=== PATIENT | male | born 1950 | race Caucasian/White ===

== ENCOUNTER 2016-09-12 10:49 | Inpatient (IN) | payer MEDICARE, OTHER ==
[~2016-09-12] VITALS: Ht 177.8 cm; Wt 85.6 kg
[2016-09-12] VITALS (7 sets, daily range): BP systolic 130–174; BP diastolic 78–84; PULSE 92–139; RESP 16–23; O2SAT 94–99
--- NOTE | 2016-09-12 11:00 | ED.REPORT ---
HPI-Abd Pain M 40 and Over Date of Service Sep 12, 2016 ED Provider: Milad King DO 66 year old male presents to the ER accompanied by his complaining of three days of RLQ abdominal pain. Pain is exacerbated by movement, and any positional changes. Associated symptoms include subjective fever, chills, diaphoresis, nausea, and anorexia. Patient denies vomiting, constipation, diarrhea, and hematochezia. He drinks alcohol daily. Nursing Notes Stated Complaint: ABDOMINAL PAIN/FEVER Chief Complaint: Male Abdominal Pain Nursing Notes Reviewed: Yes Allergies: Coded Allergies: No Known Allergies (Unverified , 09/12/16) Scheduled Fluticasone Propionate (Flonase Allergy Relief) 50 Mcg/Actuation Flasher.susp 1 SPRAY NS DAILY Levothyroxine (Levothyroxine) 25 Mcg Tablet 25 MCG PO DAILY Lisinopril (Lisinopril) 20 Mg Tablet 20 MG PO DAILY Tamsulosin (Flomax) 0.4 Mg Capsule 0.4 MG PO BID General Time Seen by MD: 10:59 Chief Complaint Abdominal pain (RLQ), Other (Fever) Hx Obtained From: Patient Arrived By: Walk-in Sudden in Onset?: No Onset Occurred: 3 days ago Symptom Duration: Since onset Location: : Diffuse Quality: Painful Severity: Current: Moderate Severity: Maximum: Moderate Associated with: Denies: Constipation, Diarrhea, Hematemesis, Hematochezia, Melena, Nausea, Vomiting Exacerbated by: Certain positions, Movement, Sitting up, Walking Pertinent Negative: Relieved by nothing Past Medical History Past Medical History Kidney stones Reports: Hypertension Reports: Thyroid disease (Hypothyroid) Smoking History Former Smoker Social History Alcohol Use: 1-3 per day Other Social History: Good social support, Ambulatory Status Independent Review of Systems Constitutional: Reports: Chills, Fever (Subjective) Respiratory: Denies: Non-productive cough, Shortness of breath GI: Reports: Abdominal pain, Nausea, Denies: Bloody/tarry stool, Constipation, Diarrhea, Hematemesis, Hematochezia , Vomiting Male: Denies Dysuria, Denies Flank pain, Denies Hematuria Complete sys rev & neg: except as marked. Skin: Reports Diaphoresis Physical Exam Initial Vital Signs Vital Signs (First) Date Time Temp Pulse Resp B/P Pulse Ox O2 Delivery O2 Flow Rate FiO2 09/12/16 10:54 37.2 139 18 132/83 99 09/12/16 12:20 Room Air Initial VS: Reviewed Head / Eyes: Atraumatic, Normocephalic, PERRL ENT: Mucous membranes moist, Conjunctiva normal, No scleral icterus Neck: Supple, Non-tender, Full range of motion Extremities: Vascular intact, Neuro intact, No swelling, No tenderness Skin: Warm, Dry, No cyanosis Neurologic: Alert, Oriented, Nonfocal Psychiatric: Mood/affect normal, Behavior normal, Normal thought content General/Constitutional: Awake, Alert, Well developed, Well nourished Respiratory / Chest: Breath sounds NL, Breath sounds = bilat, No respiratory distress, No rales, No rhonchi, No wheezing Cardiovascular: Heart rate NL, Regular rhythm, Heart sounds NL, Peripheral circulation NL Abdomen: Soft, No rebound, No distention Tenderness/Guarding/Rebound: Positive: Guarding involuntary, Guarding voluntary , McBurney's point tender, Tender RLQ... (Moderate) Back: Inspection NL, Non-tender, No CVA tenderness Interpretation & Diagnostics Lab Results Interpretation Result Diagram: 09/12/16 1130 09/12/16 1130 Test 09/12/16 11:30 09/12/16 12:50 White Blood Count 15.2th/mm3 (3.8-10.1) Red Blood Count 4.65mil/mm3 (4.40-5.80) Hemoglobin 14.3g/dL (13.8-17.2) Hematocrit 43.1% (41.0-50.0) Mean Corpuscular Volume 92.7fL (81-100) Mean Corpuscular Hemoglobin 30.8pg (27.0-35.0) Mean Corpuscular Hemoglobin Concent 33.2% (32.0-37.0) Red Cell Distribution Width 13.6% (12.3-15.4) Platelet Count 185bil/L (150-400) Neutrophils (%) (Auto) 84.8% (40-74) Lymphocytes (%) (Auto) 4.3% (14-46) Monocytes (%) (Auto) 9.9% (4-12) Eosinophils (%) (Auto) 0.7% (0-5) Basophils (%) (Auto) 0.1% (0-3) Sodium Level 135mEq/L (134-144) Potassium Level 4.5mEq/L (3.5-5.2) Chloride Level 97mEq/L (97-108) Carbon Dioxide Level 20mmol/L (18-29) Blood Urea Nitrogen 14mg/dL (8-27) Creatinine 1.20mg/dL (0.76-1.27) Estimat Glomerular Filtration Rate 65mL/min (>59) Glucose Level 182mg/dL (60-99) Lactic Acid Level 1.4mmol/L (0.4-2.0) Calcium Level 8.9mg/dL (8.5-10.1) Magnesium Level 1.8mg/dL (1.6-2.6) Total Bilirubin 0.7mg/dL (0.0-1.2) Aspartate Amino Transf (AST/SGOT) 16U/L (0-50) Alanine Aminotransferase (ALT/SGPT) 13U/L (0-44) Alkaline Phosphatase 98U/L (25-160) Total Protein 7.6g/dL (6.4-8.4) Albumin 3.7g/dL (3.4-5.0) Lipase 20U/L (13-60) Hold Urine Received (Received) ECG Interpretation ECG Interpretation: Sinus tachycardia, rate 100 Time: 12:56 Interpreted by: ED physician CT Abd / Pelvis Interpretation IMPRESSION: 1. Extensive pneumoperitoneum, source of perforation not identified but considering volume of air, large disc is perforation such as stomach or colon is likely. 2. Colonic diverticulosis, perforated diverticulum is possible. 3. Right nephrolithiasis. Report called to Dr.O' Jo in the ED at 1304 hrs. on 09/12/2016 Dictated by: Vick Howard M.D. on 09/12/2016 at 12:52 Approved by: Vick Howard M.D. on 09/12/2016 at 13:04 Study type: Abdominal CT IV contrast Interpretation / Wet Read by: Interpret - Radiologist Re-Eval/Medical Decision Med Decision/Clinical Course Perforated viscus without overt peritonitis, surgeon is called and sees the patient in the emergency department, approximately 30 mL/kg bolus of normal saline, patient met initial sepsis parameters, will be given IV Zosyn. Will be admitted. Source of Hx: Old records Time of Eval: 13:15 Re-Evaluation/Progress Note: Discussed CT results and plan to admit. Patient is amenable to the plan. Time of Eval: 13:50 Re-Evaluation/Progress Note: Dr. Langley, Surgeon, is now present at bedside. Consultation #1: Referral / Consult Name: Juan Langley MD Consulted With: Surgeon Call Returned at: 13:07 Insole Tacker: Will see patient Consultation #2: Referral / Consult Name: Juan Langley MD Consulted With: Surgeon Call Returned at: 14:00 Insole Tacker: Accepts admit Note: Requests admission to CCU on antibiotics. Will re-evaluate later today. Counseled Regarding: Diagnosis, Lab results, Need for admission Discharge & Departure Primary Impression: Perforated viscus Disposition: ADMITTED TO HOSPITAL Vital Signs - All Vital Signs Date Time Temp Pulse Resp B/P Pulse Ox O2 Delivery O2 Flow Rate FiO2 09/12/16 12:20 38.1 104 21 142/81 96 Room Air 09/12/16 10:54 37.2 139 18 132/83 99 )( All Prior VS Reviewed: Yes Condition: Stable Referrals: Wes Kingston (PCP) Crit Care Except Billable Proc Time Spent: 30-74 minutes Services Performed: Patient management by me, Time spent at bedside, Reviewing test results Critical Care Notes: See MDM Scribe Attestation Portions of this note were transcribed by Vishal Armendariz. I, Dr. King, personally performed the history, physical exam and medical decision-making; I reviewed and confirmed the accuracy of the information in the transcribed note. Signed by: Monica Serna, 09/12/2016 and 15:06 copies to: Wes Kingston Timothy S DO Sep 12, 2016 11:00 VISHAL ARMENDARIZ Sep 12, 2016 11:06
[2016-09-12] MEDS ORDERED: 0.9% Sodium Chloride 1,000 ML IV ONE ×2 (11:12→12:25)
[2016-09-12] MEDS ORDERED: Ondansetron 2 mg/mL 2 mL Inj IVPUSH PRN ×2 (11:15→14:35)
[2016-09-12] MEDS ORDERED: HYDROmorphone 0.5 mg/0.5 mL iSecure Syringe IVPUSH PRN (11:15)
[2016-09-12 11:43] LABS: BASOPHILS % (AUTO) 0.1 % (0-3); EOSINOPHILS % (AUTO) 0.7 % (0-5); MONOCYTES % (AUTO) 9.9 % (4-12); Mean Corpuscular Hemoglobin 30.8 pg (27.0-35.0); Mean Corpuscular Volume 92.7 fL (81-100); NEUTROPHILS % (AUTO) 84.8 % (40-74); Platelet Count 185 bil/L (150-400)
[2016-09-12 11:59] LABS: Magnesium 1.8 mg/dL (1.6-2.6)
[2016-09-12] MEDS ORDERED: 0.9% Sodium Chloride 500 ML IV ONE (12:45)
[2016-09-12] MEDS ORDERED: Piperacillin-Tazo 3.375 Gm Inj 3.375 GM in Dextrose 5% Minibag Plus 50 ML IV ONE (12:45)
--- NOTE | 2016-09-12 13:06 | DRSVH ---
PROCEDURE: CT ABDOMEN AND PELVIS WITH CONTRAST (PNL-7102) INDICATIONS: abd pain TECHNIQUE: After the administration of intravenous contrast, 5 mm thick sections acquired from the diaphragm to the symphysis. 5 mm coronal and sagittal reformats were acquired. For radiation dose reduction, the following was used: automated exposure control, adjustment of mA and/or kV according to patient siz e. COMPARISON: None. FINDINGS: Image quality: Excellent. ABDOMEN: Lung bases: Lung bases are clear. Heart size is normal. Solid organs: Liver and spleen are normal in size and enhancement. Gallbladder appears clear. Bili seema system is non dilated. Pancreas enhances normally. No adrenal nodules. Kidneys demonstrate nor mal size and enhancement, without hydronephrosis. Small renal cortical hypodensities, likely cysts bi laterally. Nonobstructing calculi mid and lower pole of the right kidney Peritoneum and bowel: Small bowel loops demonstrate normal wall thickness and caliber. The colon show s redundancy of the sigmoid segment with multiple scattered diverticula. There is mesenteric fat stra nding but no focal bowel wall thickening differential diagnosis as diverticulitis There is a large am ount of free intraperitoneal air. Free air even extends into the left inguinal hernia. No free fluid. Nodes and vessels: No retroperitoneal or mesenteric adenopathy by size criteria. Aorta and inferior vena cava are normal in size. Miscellaneous: No ventral hernias. PELVIS: Genitourinary: Bladder wall thickness is normal. Miscellaneous: No inguinal hernias or adenopathy. Bones: No suspicious bony lesions. No vertebral body compression fractures. IMPRESSION: 1. Extensive pneumoperitoneum, source of perforation not identified but considering volume of air, la rge disc is perforation such as stomach or colon is likely. 2. Colonic diverticulosis, perforated diverticulum is possible. 3. Right nephrolithiasis. Report called to Dr.O' Jo in the ED at 1304 hrs. on 09/12/2016 Dictated by: Vick Howard M.D. on 09/12/2016 at 12:52 Approved by: Vick Howard M.D. on 09/12/2016 at 13:04
[2016-09-12] MEDS: 0.9% Sodium Chloride 1,000 ML IV SCH ×3 (13:23→20:25)
[2016-09-12] MEDS ORDERED: LISI-567 PO (13:51)
[2016-09-12] MEDS ORDERED: TAMS0.4C98 PO (13:51)
[2016-09-12] MEDS ORDERED: LEVO25TA5 PO (13:51)
[2016-09-12] MEDS ORDERED: FLUT9.9S NS (13:51)
[2016-09-12] MEDS ORDERED: Acetaminophen IV 1,000 MG in IV Premix 1 EACH IV ONE (14:00)
[2016-09-12] MEDS: Lactated Ringer's 1,000 ML IV SCH (16:15)
[2016-09-12 16:30] LABS: APPEARANCE,URINE CLEAR (CLEAR,HAZY); COLOR,URINE DARK YELLOW (YELLOW); OCCULT BLOOD,URINE NEGATIVE (NEGATIVE); PH,URINE 5.5 (5.0-8.0)
[2016-09-12 16:31] LABS: UROBILINOGEN,URINE NORMAL (NORMAL)
--- NOTE | 2016-09-12 17:01 | NUR ---
Admit from ER to CCU #2018 at 1600. A/O and in good spirits. Reports "mild" lower abdominal discomfort. No nausea. IVFs infusing. Vital signs stable. Afebrile. Sinus rhythm, HR 90s on tele. Supportive at bedside.
[2016-09-12 20:12] LABS: BASOPHILS % (AUTO) 0.1 % (0-3); EOSINOPHILS % (AUTO) 1.5 % (0-5); MONOCYTES % (AUTO) 11.1 % (4-12); Mean Corpuscular Hemoglobin 30.7 pg (27.0-35.0); Mean Corpuscular Volume 93.5 fL (81-100); NEUTROPHILS % (AUTO) 77.9 % (40-74); Platelet Count 177 bil/L (150-400)
[2016-09-12] MEDS: Acetaminophen IV 1,000 MG in IV Premix 1 EACH IV PRN (21:03)
[2016-09-12] MEDS: Piperacillin-Tazo 3.375 Gm Inj 3.375 GM in Dextrose 5% Minibag Plus 50 ML IV SCH (21:40)
[2016-09-13] MEDS: 0.9% Sodium Chloride 1,000 ML IV SCH ×3 (00:25→08:25)
[2016-09-13 00:30] VITALS: BP 151/80; PULSE 91; RESP 20; O2SAT 94
[2016-09-13] MEDS: Lactated Ringer's 1,000 ML IV SCH ×3 (00:46→15:15)
--- NOTE | 2016-09-13 01:46 | HP ---
[address] [address] HISTORY AND PHYSICAL PATIENT: MAYELA SHERMAN : 1950 MR#: [id number] ADMIT: 09/12/2016 JOB ID: [id number] CHIEF COMPLAINT/IDENTIFICATION: A 66-year-old man with retroperitoneal and intraperitoneal free air. HISTORY OF PRESENT ILLNESS: The patient notes that he began with a relatively acute onset of abdominal pain on Sunday morning that has increased since then, getting worse on Sunday, yesterday. He stopped eating and drinking about then, but his pain has continued unabated, and he came into the emergency department. He has associated chills, diaphoresis, nausea, but had a normal bowel movement yesterday, and no diarrhea. There has been no vomiting. He has a known history of diverticulosis based on a colonoscopy eight years ago that was deemed otherwise normal. He has no history of perianal disease and has not had any sort of foreign body or suppository placed in his rectum recently. His denies a significant use of NSAIDs. He does drink alcohol on a daily basis, though has not had a drink in the past four days due to this pain. PAST MEDICAL HISTORY: Hypertension, hypothyroidism, BPH. MEDICATIONS: Flonase, levothyroxine, lisinopril, Flomax. ALLERGIES: None. SOCIAL HISTORY: He is seen with his , ex-smoker. FAMILY HISTORY: Noncontributory. REVIEW OF SYSTEMS: A 12-point review of systems negative. PHYSICAL EXAMINATION: When the patient was initially seen by me in the emergency department, he was febrile to 38.1, but he had initially been afebrile. His initial pulse had been 139, was down to 104 with IV hydration. Blood pressures were within normal limits. His room air saturation was 96%. He appeared in no acute distress. His sclerae is clear. The neck is supple. Lungs are clear. Heart sounds are regular. His abdomen is protuberant, mild tympany, mild diffuse abdominal tenderness to palpation, more so in the lower abdomen, but no peritoneal signs on extended examination including palpation with coughing. Rectal examination is reportedly nontender, heme negative, unremarkable. His extremities are without edema. Neurologically, he is intact. LABORATORIES: Show white count of 15.2, hematocrit of 43. Chemistries are normal. Glucose is 182. LFTs are normal. Lipase is 20. Lactic acid is 1.4. Urinalysis is negative, other than being concentrated. IMAGING: He has had an abdominal CT with fairly dramatic findings of extensive pneumoperitoneum, more so in the retroperitoneum bilaterally including going around both kidneys and in the para-aortic region. He does have colonic diverticulosis and a right-sided nephrolithiasis. IMPRESSION AND PLAN: A 66-year-old, relatively healthy man, with 4-day history of abdominal pain, with a very worrisome-looking CT scan. I have considered and discussed with him the options of going to the operating room for exploration and washout, possible resection versus repair, high likelihood of colostomy, versus IV hydration, IV antibiotics and observation. Although his CT scan is dramatically worrisome, his clinical appearance is somewhat better and, given the course of the illness and overall situation, I have recommended that we admit him to the hospital, place him on IV Zosyn, keep him n.p.o., and follow him closely. He well may end up getting sicker at will end up in the OR later tonight. If he deteriorates in the next 48 hours, he likely will need to go to the OR, but if he continues to do well with n.p.o. and IV antibiotics, I would plan to repeat his CT scan on to be certain that the retroperitoneal air and intra-abdominal air is decreasing and not increasing. We will recheck his CBC and lactic acid later today, I will perform serial exams in the ICU, and we will see how he does overnight.
[2016-09-13] MEDS: Acetaminophen IV 1,000 MG in IV Premix 1 EACH IV PRN ×3 (02:59→17:43)
[2016-09-13 03:05] VITALS: BP 167/82; PULSE 92; RESP 25; O2SAT 97
[2016-09-13 04:30] VITALS: BP 147/86; RESP 18; O2SAT 97
[2016-09-13] MEDS: Piperacillin-Tazo 3.375 Gm Inj 3.375 GM in Dextrose 5% Minibag Plus 50 ML IV SCH ×3 (04:49→20:20)
--- NOTE | 2016-09-13 04:50 | NUR ---
P: Febrile I: tylenol IV E: Pt feeling chilled and temperature 37 PO spiking to max temp 39.4 AX, tylenol IV given x 2. Helpful. c/o abdominal aching radiating to back, tylenol IV helpful. Voiding sonam urine. Passing flatus. Tele SR, occasional ST. Mod to high BP. RA sats 92%+ awake. Sleep apnea, sats dropping to low 80s but not sustaining. 2L NC applied and effective for desaturations.
[2016-09-13 05:16] LABS: BASOPHILS % (AUTO) 0.1 % (0-3); EOSINOPHILS % (AUTO) 4.1 % (0-5); MONOCYTES % (AUTO) 10.8 % (4-12); Mean Corpuscular Hemoglobin 30.2 pg (27.0-35.0); Mean Corpuscular Volume 93.2 fL (81-100); NEUTROPHILS % (AUTO) 76.3 % (40-74); Platelet Count 188 bil/L (150-400)
[2016-09-13] MEDS: HYDROmorphone 0.5 mg/0.5 mL iSecure Syringe IV PRN (06:59)
[2016-09-13] MEDS: Fluticasone 0.05% 15 Spray/2 Gm 16 Gm Nasal Spray NASAL SCH (08:28)
[2016-09-13 08:31] VITALS: BP 169/86; PULSE 89; RESP 22; O2SAT 100
--- NOTE | 2016-09-13 10:37 | PCM.PNSURG ---
Subjective Date of Service: Sep 13, 2016 Visit Information: Reason for Visit Perforated Viscous Surgery/Surgery Date Post-Op Day # Date of Admission: Sep 12, 2016 at 15:32 Hospital Day #2 Subjective: Abdominal pain completely relieved compared to yesterday, pain medication helping. Complains of usual low back pain. Has not been out of bed. Passing gas but has not had a bowel movement, had a bowel movement yesterday. Denies nausea or vomiting. Postop General: No Complaints Gastrointestinal: No N/V, Passing Flatus Pain Management: IV Push, Other (IV acetaminophen) Postop Activity: Other (has not been out of bed) Objective Vital Sign- Last 8 Hours Date Time Temp Pulse Resp B/P Pulse Ox O2 Delivery O2 Flow Rate FiO2 09/13/16 08:31 37.0 89 22 169/86 100 Nasal Cannula 2.00 09/13/16 04:30 18 147/86 97 Nasal Cannula 2.00 09/13/16 03:05 37.5 92 25 167/82 97 Room Air Intake and Output- Last 8 Hour 09/13/16 Cumulative From/Thru 07:00 09/12/16 10:54 - 09/13/16 06:53 Intake Total 1591 ml 6716 ml Output Total 1775 ml 1775 ml Balance -184 ml 4941 ml Intake Oral 0 ml IV Total 1591 ml 6716 ml Output Urine Total 1775 ml 1775 ml # Voids 1 # Bowel Movements 0 0 General: Alert, Cooperative, No Acute Distress Lungs: Clear to Auscultation Heart: Regular Rate/Rhythm, No Murmurs/Rubs/Gallops Abdomen: Soft, Non-tender, Protuberant (the patient believes his abdominal girth is at its normal size) Extremities: Thigh&Calf Soft/Nontender Neuro: Normal Speech Catheters: None Result Diagram: 09/13/16 0459 09/13/16 0459 Assessment & Plan Impression Primary diagnoses: 1. Abdominal pain with retroperitoneal and intra-abdominal free air along the small bowel mesentery. HD #2 with resolution of abdominal pain. 2. Hypertension. Currently hypertensive on his usual dose of lisinopril 20 mg by mouth daily. Other diagnoses: 1. Hypothyroidism 2. BPH 3. Former cigarette smoker Problems: Plan 1. Increase lisinopril to 40 mg by mouth daily. 2. Continue nothing by mouth except medications. 3. Repeat CT in the morning. 4. May be out of bed to chair as tolerated. Pain Management: Intermittent IV Dilaudid IV acetaminophen VTE Prophylaxis: ALEXSANDERs Nikolay Bunch PA-C Sep 13, 2016 10:37
--- NOTE | 2016-09-13 18:45 | NUR ---
Shift: Afebrile, VSS, tele SR. Pt is hypertensive, Lisinopril dose increased. Per Surgery, pt should stay CCU status for observation of abd free air. Plan is for repeat ABD CT in AM. IND in room, assisting with personal care, care ongoing.
[2016-09-13 20:30] VITALS: BP 138/78; PULSE 74; RESP 20; O2SAT 97
[2016-09-14 00:30] VITALS: BP 133/86; PULSE 88; RESP 20; O2SAT 100
[2016-09-14] MEDS: Piperacillin-Tazo 3.375 Gm Inj 3.375 GM in Dextrose 5% Minibag Plus 50 ML IV SCH ×3 (04:29→20:57)
[2016-09-14 04:30] VITALS: BP 164/88; PULSE 98; RESP 22; O2SAT 95
[2016-09-14 04:33] LABS: BASOPHILS % (AUTO) 0.2 % (0-3); EOSINOPHILS % (AUTO) 2.4 % (0-5); MONOCYTES % (AUTO) 11.6 % (4-12); Mean Corpuscular Hemoglobin 30.2 pg (27.0-35.0); Mean Corpuscular Volume 92.4 fL (81-100); NEUTROPHILS % (AUTO) 76.9 % (40-74); Platelet Count 219 bil/L (150-400)
[2016-09-14] MEDS: HYDROmorphone 0.5 mg/0.5 mL iSecure Syringe IV PRN (05:30)
[2016-09-14] MEDS: Lactated Ringer's 1,000 ML IV SCH (06:27)
[2016-09-14 07:59] VITALS: BP 163/79; PULSE 89; RESP 16; O2SAT 97
[2016-09-14] MEDS: Fluticasone 0.05% 15 Spray/2 Gm 16 Gm Nasal Spray NASAL SCH (08:07)
--- NOTE | 2016-09-14 10:15 | NUR ---
Transfer to [facility] Patient stable throughout night, no c/o abdominal pain or nausea. Dr. Langley in to evaluate patient this morning, orders received for patient to transfer out of CCU, floor, no tele. Report called to Javier on [facility], patient taken for CT and transferred directly to new floor.
[2016-09-14 11:02] VITALS: BP 174/92; PULSE 92; RESP 20; O2SAT 96
--- NOTE | 2016-09-14 11:21 | NUR ---
Transfer of care Patient to [facility] from room 2018. Assumed care at 1100. Patient has no complaints at this time and understands plan. Patients at bedside.
--- NOTE | 2016-09-14 14:39 | NUR ---
Social Work Initial Assessment and Discharge: SW met with patient at bedside to discuss discharge plan. Patient is a 81 year old male admitted under observation status on 09/13/16 for chest pain. Patient payer as Medicare and L2C. 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 Patient PCP as MD Gilbert. Patient states residing at [facility], . Patient states having no previous HHC, SNF, DME or AD history. Patient states family has been coordinating AD completion. Patient participated with therapy and patient has no PT needs. SW spoke to [facility] and spoke to rep Coulter who states that patient accepted back upon discharge. SW faxed discharge instructions to [phone]. No other needs identified at this time. Patient daughter to coordinate transport home at discharge. SW to follow. PLAN: Return to [facility] today with family transport assistance Corrina TRUONG Addendum: 09/14/16 at 1445 by ANTHONY KINCAID Amended: Links added. Addendum: 09/14/16 at 1728 by NISHANT KINCAID AFOREMENTIONED NOTE ENTERED IN ERROR; Disregard
--- NOTE | 2016-09-14 14:40 | PROG NOTE ---
[address] [address] PROGRESS NOTE PATIENT: MAYELA SHERMAN : 1950 MR#: [id number] ADMIT: 09/12/2016 JOB ID: [id number] DATE: 09/14/2016 SUBJECTIVE: The patient remains clinically stable, afebrile without tachycardia. His blood pressure has been a little bit high. He is passing gas, tolerated his oral contrast well. He continues on Zosyn. His abdominal exam is benign. His white count, however, remains at 14,000. His CRP remains elevated at 33.2. Hematocrit is 37.9. He had a repeat CT scan today which remains unread several hours after completion, but when I compare the two, it seems to be somewhat improved with less free air and less retroperitoneal air, good oral contrast all the way to the rectum with no sign of extravasation. IMPRESSION AND PLAN: He feels well and is well on examination, but his objective measures continue to lag behind his appearance. I would like to keep him on IV antibiotics at least until either his white count or his CRP starts to normalize. I have explained this to the patient. We will give him clear liquids, however.
--- NOTE | 2016-09-14 15:41 | DRSVH ---
PROCEDURE: CT ABDOMEN AND PELVIS WITH CONTRAST (PNL-7102) INDICATIONS: follow intraabdominal free air TECHNIQUE: After the administration of oral and intravenous contrast, 5 mm thick sections acquired from the diap hragms to the symphysis. 5 mm thick coronal and sagittal reformats were performed. For radiation do se reduction, the following was used: automated exposure control, adjustment of mA and/or kV accordi ng to patient size. COMPARISON: [facility], CT, CT ABD PELVIS W CON, 09/12/2016, 12:34. FINDINGS: Image quality: Excellent. ABDOMEN: Lung bases: Lung bases are clear. Heart size is normal. Solid organs: Liver and spleen are normal in size and enhancement. Gallbladder demonstrates depende nt stones/sludge. Biliary system is non-dilated. Pancreas enhances normally. No adrenal nodules. Kidneys are normal in size and enhancement, without hydronephrosis. Renal cysts and nonobstructing c alculi are noted without change. Peritoneum and bowel: Stomach, small bowel, and colon loops are nonobstructive. There is a persisten t appearance of mesenteric fat stranding within the region of the sigmoid colon. The colon is poorly distended with an appearance of thickening without significant interval change. As previously identif ied, there is extensive free air within the abdomen and pelvis small areas of pneumobilia are noted. The large focus of air within the mid pelvis in the region of the sigmoid colon remains the most prom inent focal area of air but has decreased compared to prior exam. Air is noted to be present along th e paraesophageal region and as well small punctate areas along the pericardial fat, less prominent. S ource of free air is not readily identified. Nodes and vessels: No retroperitoneal or mesenteric adenopathy. Aorta and inferior vena cava are no rmal in caliber. Miscellaneous: No ventral hernias. PELVIS: Genitourinary: Bladder wall thickness is normal. Miscellaneous: No inguinal hernias or adenopathy. Bones: No suspicious bony lesions. No vertebral body compression fractures. IMPRESSION: 1. Persistent, significant pneumoperitoneum as identified on 09/12/16, with mild interval decreased pr ominence, as above. Dictated by: Deysi Diaz M.D. on 09/14/2016 at 15:33 Approved by: Deysi Diaz M.D. on 09/14/2016 at 15:39
[2016-09-14 17:05] VITALS: BP 154/86; PULSE 86; RESP 20; O2SAT 97
--- NOTE | 2016-09-14 17:30 | NUR ---
Social Work: Initial Assessment D: Per EMR review, pt is a 66 year old male admitted for perforated viscous. Pt is Medicare with [employer] [place] [employer] Supplement. PCP is Juan Sigala MD. NOK is Richmond Tavarez, , . Advanced directives not completed but information provided by HAMMER DRIVER. Readmit score is low, 0/8. HAMMER DRIVER met with pt at bedside. Sw role and contact information provided. See initial assessment. Pt and spouse live on [address]. Pt is I with all ADLS and uses no DME at base. Pt continues to drive, has never had HH or intermediate. Pt expresses no concerns about discharge home and states that he has been ambulating I during admission. Per care trends, Pt has been I in room. No PT/OT/ST notes at this time. Pt states his will transport him home when ready. EMR reviewed and no sw needs or barriers identified at this time. A: Pt who is I at baseline. P: Anticipate pt to discharge home via POV once medically stable; HAMMER DRIVER to continue to follow if needs arise. ALEXI Baltazar Addendum: 09/14/16 at 1735 by NISHANT KINCAID Amended: Links added.
[2016-09-14 20:11] VITALS: BP 184/90; PULSE 100; RESP 19; O2SAT 96
[2016-09-14] MEDS ORDERED: 0.9% Sodium Chloride 100 ML ONE (22:54)
[2016-09-15] VITALS (9 sets, daily range): BP systolic 115–184; BP diastolic 73–125; PULSE 70–98; RESP 14–17; O2SAT 94–99
--- NOTE | 2016-09-15 03:28 | NUR ---
BLOOD PRESSURE P: BP at 1999 184/90. I: Paged Dr. Langley, ordered one time dose of 20 mg lisinopril. E: BP at 0000 improved to 149/98. Hourly rounding in place. Addendum: 09/15/16 at 0402 by PARISH VIGIL RN BP at 5 was 184/91. Paged Dr. Langley, awaiting reply. Addendum: 09/15/16 at 0424 by PARISH VIGIL RN ordered nitro paste PRN. At recheck of BP after orders, BP in 150s/80s. No paste given at this time. Pt reported he had just gotten up from when BP was in 180s. Continuing care.
[2016-09-15] MEDS ORDERED: Nitroglycerin 2% 1 Gm Ointment TOPICAL PRN (04:15)
[2016-09-15] MEDS: Piperacillin-Tazo 3.375 Gm Inj 3.375 GM in Dextrose 5% Minibag Plus 50 ML IV SCH ×3 (04:21→20:00)
[2016-09-15 08:03] LABS: BASOPHILS % (AUTO) 0.5 % (0-3); EOSINOPHILS % (AUTO) 2.7 % (0-5); MONOCYTES % (AUTO) 10.7 % (4-12); Mean Corpuscular Hemoglobin 30.8 pg (27.0-35.0); Mean Corpuscular Volume 91.9 fL (81-100); NEUTROPHILS % (AUTO) 74.5 % (40-74); Platelet Count 261 bil/L (150-400)
--- NOTE | 2016-09-15 08:16 | PCM.PNSURG ---
Subjective Date of Service: Sep 15, 2016 Visit Information: Reason for Visit Perforated Viscous Surgery/Surgery Date Post-Op Day # Date of Admission: Sep 12, 2016 at 15:32 Hospital Day # Subjective: Patient states that he is feeling well today, no difficulty tolerating clear liquids. He states that his RLQ abdominal pain has essentially resolved. He expresses some vexation with clinical staff stating his belly is distended because he asserts that it always looks like this. Denies N/V, no BMs with minimal flatus. Denies chest pain or SOB. Postop General: No Shortness of Breath, No Chest Pain Gastrointestinal: Tolerating Oral Feedings, No N/V, Other (No BM, minimal flatus) Pain Management: IV Push Postop Activity: Ambulating Independently Objective Vital Sign- Last 8 Hours Date Time Temp Pulse Resp B/P Pulse Ox O2 Delivery O2 Flow Rate FiO2 09/15/16 07:34 36.6 82 16 175/99 95 Room Air 09/15/16 04:34 36.8 75 17 150/80 99 Nasal Cannula 2.00 09/15/16 03:39 36.6 79 16 184/91 96 Nasal Cannula 09/15/16 00:14 37.1 87 14 149/98 96 Room Air Intake and Output- Last 8 Hour 09/15/16 Cumulative From/Thru 07:00 09/12/16 10:54 - 09/15/16 06:22 Intake Total 617 ml 9479 ml Output Total 1050 ml 4625 ml Balance -433 ml 4854 ml Intake Oral 480 ml 480 ml IV Total 137 ml 8999 ml Output Urine Total 1050 ml 4625 ml # Voids 5 # Bowel Movements 0 General: Alert, Oriented X3, Cooperative, No Acute Distress Neck: Supple, Full Range of Motion Lungs: Clear to Auscultation, Clear to Percussion, Normal Air Movement Heart: Regular Rate/Rhythm, Normal S1, Normal S2, No Murmurs/Rubs/Gallops Abdomen: Soft, Non-tender, Distended (Though patient states this degree of distension is normal for him), Normoactive bowel tones Extremities: Distal Pulses Palpable, Warm, No Cord to Palpation Neuro: Grossly Neurologically Intact, Normal Speech Catheters: None Result Diagram: 09/15/16 0740 09/14/16 0422 Assessment & Plan Impression Patient remains comfortable and cooperative with care, he appears to fully understand his clinical course and the necessity of further observation. Tolerating clear liquids, no BM and minimal flatus. White count remains elevated but downward trending, CRP still pending at the time of evaluation. Clinically appears stable with no active complaints, he states that his RLQ abdominal pain has essentially resolved. Problems: Plan We will continue with IV Zosyn and clear liquid diet. Continue to trend CBC and CRP to assess for resolution of intra-abdominal process. Last CT on 09/14/16, will consider follow up imaging following resolution of lab values prior to discharge. VTE Prophylaxis: SCDs Resuscitation Status: CPR: Attempt Resuscitation Juan Cerda DO Sep 15, 2016 08:16
[2016-09-15] MEDS: Fluticasone 0.05% 15 Spray/2 Gm 16 Gm Nasal Spray NASAL SCH (09:46)
--- NOTE | 2016-09-15 13:37 | NUR ---
BLOOD PRESSURE P- BP at 0800 170/80, at 1100 181/125, at 1230 171/101. I- Scheduled 40mg Lisinopril given 0830, One inch of Nitro past applied at 1130, and at 1230 400mg Labetalol given E-Patient's BP_ at 1345 was 145/87, PRN orders for 400mg Labetalol for BP>170 SBP or DBP> 110.
--- NOTE | 2016-09-15 16:09 | PROG NOTE ---
[address] [address] PROGRESS NOTE PATIENT: MAYELA SHERMAN : 1950 MR#: [id number] ADMIT: 09/12/2016 JOB ID: [id number] DATE: 09/15/2016 SUBJECTIVE: The patient is seen in his room. He has the curious case of the extensive retroperitoneal free air with a very minimal clinical course. He continues to improve. He has had a bowel movement. He denies nausea or vomiting. DATE: REVIEW OF SYSTEMS: He denies abdominal pain. He also states that his abdomen is in its normal contour. He says that it is not distended to his eyes. PHYSICAL EXAMINATION: He is alert, no distress. Temperature 36.8, brachial blood pressure 173/101, pulse 98, respiratory rate 16, O2 sat 2 L 95%. HEENT: Smiling, no distress. No icterus. Neck: Supple. Abdomen: Is soft, nontender. No peritoneal signs. No guarding. LABORATORY RESULTS: White blood cell count 12.9, hematocrit 38.8. He has a left shift. Platelets 261,000. C. reactive protein has fallen to 28.4. IMPRESSION: Diffuse retroperitoneal air of unknown etiology. The patient is clinically very benign and is on antibiotics and is improving. In 6-8 weeks, he will need a colonoscopy. He says his last colonoscopy was about eight years ago. He is comfortable with this plan. He does have hypertension and earlier today, Juan Cerda, added labetalol for control of his hypertension.
--- NOTE | 2016-09-15 16:29 | NUR ---
LABS- WBC 14.2, CRP 33.2 NEURO-LOC X4 [facility]-See above note PLUM-RA GI-Clears, denies nausea, BM today -Urinal SKIN-WNL PAIN- Denies IV-S/L, antibiotics Tx PLAN- Conservative care, antibiotics, rest bowel, control HTN.
--- NOTE | 2016-09-15 23:15 | NUR ---
headache patient complained of a mild headache to the back of his neck at 1999. rated 4 medicated with tylenol and ice pack. patient noted it was effective. rated 1. resting quietly, no complaints care ongoing. Addendum: 09/15/16 at 2355 by NIKKIE BOYD RN called to room. patient complains of headache rates 8. back of neck. given towel roll for support.medicated with 0.5 mg dilaudid slow iv push. patient states "i think i am sleep deprived. i need to go home." given emotional support. care ongoing.
[2016-09-15] MEDS: HYDROmorphone 0.5 mg/0.5 mL iSecure Syringe IV PRN (23:49)
[2016-09-16] MEDS: Piperacillin-Tazo 3.375 Gm Inj 3.375 GM in Dextrose 5% Minibag Plus 50 ML IV SCH (03:41)
[2016-09-16 04:47] VITALS: BP 177/94; PULSE 78; RESP 16; O2SAT 95
[2016-09-16 07:17] VITALS: BP 144/89; PULSE 81; RESP 15; O2SAT 97
--- NOTE | 2016-09-16 10:18 | NUR ---
Cough patient having intermittent dry cough and on Lisinoprill 40 mg. Paged doctor and aware. Stable vital signs. Denies pain or discomfort. Denies headaches or abdominal discomfort or pain. Spouse at bed side. Independent with ADL's. room air. IV saline locked. Call light with in reach for safety.
[2016-09-16 10:50] LABS: BASOPHILS % (AUTO) 0.5 % (0-3); MONOCYTES % (AUTO) 12.1 % (4-12); Mean Corpuscular Hemoglobin 30.3 pg (27.0-35.0); Mean Corpuscular Volume 90.8 fL (81-100); Platelet Count 310 bil/L (150-400)
--- NOTE | 2016-09-16 10:57 | NUR ---
Blood pressure Bp 158/96, pulse 87. has orders for Lisinoprill and patient having intermittent cough and states," with 40 mg i have been having increased coughing and continued through the night." Paged doctor and aware," i will do rounds with patient." patient aware and refused to take 40 mg Lisinoprill.
[2016-09-16] MEDS: Fluticasone 0.05% 15 Spray/2 Gm 16 Gm Nasal Spray NASAL SCH (11:01)
--- NOTE | 2016-09-16 11:34 | PCM.DISURG ---
Surgical Discharge Instruction Date of Service Sep 16, 2016 Dates of Hospitalization Date of Hospital Admission Sep 12, 2016 at 15:32 Providers Admitting Physician: Juan Langley MD Primary Care Physician: Juan Sigala DO Attending Physician: Juan Langley MD Discharge Diagnosis Discharge Diagnosis pneumoperitoneum, retropneumoperitoeum, presumptive diverticulitis, poorly controlled hypertension Diet Discharge Diet: No restrictions Activity Discharge Activity-General: No restrictions Dressing and Incisional Care Hygiene: May shower Follow Up Plan Follow Up Plan [address] Carrizales or someone else in [facility] General Surgery. You will need a colonoscopy in 6-8 weeks. Also follow up with your PCP to have your BP meds adjusted upward Call your provider for: Fever, Chills, Other (night sweats, fatigue) Juan Langley MD Sep 16, 2016 11:34
[2016-09-16] MEDS ORDERED: AMOX-366 PO (11:35)
[2016-09-16 11:58] VITALS: BP 174/98; PULSE 81; RESP 18; O2SAT 96
--- NOTE | 2016-09-16 11:59 | NUR ---
Blood pressure. New orders for Lisinopril. medication given as ordered.
--- NOTE | 2016-09-16 12:28 | NUR ---
Discharged Reviewed discharge paper work and antibiotic prescription. Understood discharge instructions and agreed. patient will call and make follow up appointment with PCP per discharge instructions. IV removed left arm without difficulty. Denies pain or discomfort. Denies headaches. Denies abdominal pain or discomfort.
--- NOTE | 2016-09-16 13:50 | DIS ---
[address] [address] DISCHARGE SUMMARY PATIENT: MAYELA SHERMAN : 1950 MR#: [id number] ADMIT: 09/12/2016 JOB ID: [id number] DIS: 09/16/2016 DISCHARGE DIAGNOSES: 1. Pneumoperitoneum. 2. Retropneumoperitoneum. 3. Presumptive diverticulitis. 4. Hypertension. HOSPITAL COURSE: This is a relatively healthy 66-year-old man, except for outpatient treatment of his hypertension, who presented with a 4-day history of progressive abdominal pain without peritonitis, with mild elevation of his white blood cell count, and a markedly abnormal CT scan with a fair amount of retroperitoneal gas as well as some intraperitoneal gas. The decision was made to treat him nonoperatively and he was placed on intravenous Zosyn with resolution of his pain. His C-reactive protein was elevated on admission at 33 and it took 72 hours for that to begin to drop, as well as for his white blood cell count to drop. We did repeat his CT scan at 48 hours and it demonstrated what I thought was slightly decreased pneumoperitoneum and pneumoretroperitoneum, and the radiologist's reading concurred with mild interval decrease prominence. At this point the decision has been made to switch the patient over to oral antibiotics and send him home on a regular diet. On the day of discharge he has been afebrile, his abdomen is benign, and he has no subjective complaints. His white count has dropped down to 11. I will send him home with an additional 10 days of p.o. Augmentin b.i.d. His blood pressure has been slightly elevated throughout this hospitalization and we transiently doubled his lisinopril and added labetalol. However, this morning his blood pressure is within normal limits and we will send him home on his preoperative dose of lisinopril. He will follow up within the next week or two with his primary care provider. He will follow up in the [facility] in 1-2 weeks and will need a colonoscopy in 6-8 weeks. I have warned him about signs and symptoms of intra-abdominal and retroperitoneal abscess including fevers, chills, night sweats, and general fatigue.
[2016-11-14] MEDS ORDERED: LOSA25TA21 PO (17:02)
== END 2016-09-16 12:27 | disposition home or self-care (01) | DRG 394 ==
LOC: SED 10:49 → CCU 15:32 → PCC 09-14 08:26 → MOC 09-14 10:42
PROVIDERS: ADMIT Surgery; ATTEND Surgery
DX: K66.8 Other specified disorders of peritoneum (principal); K57.92 Diverticulitis of intestine, part unspecified, without perforation or abscess without bleeding; Z87.891 Personal history of nicotine dependence; I10 Essential (primary) hypertension; E03.9 Hypothyroidism, unspecified

== ENCOUNTER 2016-11-15 12:18 | Day surgery (SDC) | payer MEDICARE, OTHER ==
[~2016-11-15] VITALS: Ht 177.8 cm; Wt 80.3 kg
[~2016-11-15 12:18] MED LIST: 0.9% Sodium Chloride 1,000 ML IV SCH; AMOX-366 PO; FLUT9.9S NS; LEVO25TA5 PO; LOSA25TA21 PO; Sodium Biphos-Phos 133 mL Enema RECTAL PRN; Sodium Chloride LOK Flush 10 mL Syringe IV PRN; TAMS0.4C98 PO; fentaNYL-PF 50 mCg/mL 2 mL Inj IVPUSH PRN
[2016-11-15] MEDS ORDERED: Propofol 10,000 mCg/mL 20 mL Inj ONE (12:19)
[2016-11-15 12:51] VITALS: BP 152/92; PULSE 84; RESP 17; O2SAT 98
[2016-11-15 14:50] VITALS: BP 124/79; PULSE 82; RESP 14; O2SAT 96
[2016-11-15 15:01] VITALS: BP 132/86; PULSE 72; RESP 12; O2SAT 97
--- NOTE | 2016-11-15 15:39 | ENDO ---
[address] [address] ENDOSCOPY PROCEDURE PATIENT: MAYELA SHERMAN : 1950 MR#: [id number] ADMIT: 11/15/2016 JOB ID: [id number] DATE OF SERVICE: 11/15/2016 PREPROCEDURE DIAGNOSIS: Perforated sigmoid diverticulitis. POSTPROCEDURE DIAGNOSES: 1. Perforated sigmoid diverticulitis. 2. Cecal polyp. 3. Hepatic flexure polyp. 4. Transverse colon polyp. 5. Sigmoid colon polyp. ENDOSCOPIST: Edson Caban MD. MEDICATIONS: 1. Versed 9 mg. 2. Fentanyl 175 mcg. 3. Propofol-assisted anesthesia. INDICATIONS: The patient is a 66-year-old man who was hospitalized in August with presumed perforated sigmoid diverticulitis. He had a CT scan on admission that showed a large amount of free air in the abdomen and retroperitoneum, but a benign abdominal exam. He was placed on broad-spectrum antibiotics and treated conservatively, and improved. His last colonoscopy was in 2008. After discussion of risks and benefits, he agreed to proceed with colonoscopy. FINDINGS: Reaching the cecum was difficult and required removing the initial scope and placing the 190 cm scope, as well as converting to a propofol-assisted anesthesia. There were multiple diverticula throughout the entire transverse, descending, and sigmoid colon. There were polyps in the cecum, at the hepatic flexure, in the transverse colon and in the sigmoid colon which were removed through a combination of hot snare and cold forceps. TOTAL PROCEDURE TIME: Approximately 70 minutes. DESCRIPTION OF THE PROCEDURE: Procedural sedation was achieved. The patient was connected to hemodynamic monitoring, pulse oximetry, capnography. After digital rectal exam, the PCF-H180AL colonoscope was initially inserted. The colon was long and tortuous, and the ileocecal valve was visualized, but the cecum could not be intubated with this scope despite repositioning the patient and multiple abdominal pressure maneuvers. The scope was removed and the PCF-H190AL colonoscope was inserted. At the same time, the patient had received maximal medication for sedation and was having some mild apneic episodes, so Dr. Leandro Salinas performed propofol-assisted anesthesia for the remainder of the procedure. Once both of these maneuvers had been accomplished, the cecum was able to be intubated. The scope was then carefully withdrawn and retroflexed in the rectum. There were multiple polyps. There was a small cluster of 2-3 mm, rounded polyps in the cecum just proximal to the ileocecal valve which were removed en bloc with a hot snare forceps. There was a 2 mm, rounded polyp at the hepatic flexure which was removed with a cold forceps. There was a 3 mm, flat polyp in the transverse colon which was removed with a cold forceps. There was a 4-5 mm, pedunculated polyp in the sigmoid colon which was removed with a hot snare. Finally, the scope was removed and the procedure was terminated. He tolerated the entire procedure well. RECOMMENDATIONS: A letter will be mailed to the patient with biopsy results. He should remain on a high-fiber diet for life. Based on histopathology, recommend next colonoscopy in three years.
--- NOTE | 2016-11-17 16:28 | PATH ---
SURGICAL PATHOLOGY Attending Physician:Leslee Arredondo CASE STATUS: Signed Out PATIENT NAME: MAYELA SHERMAN PID: [id number] : 1950 DATE COLLECTED:11/15/2016 00:00 SPECIMEN: 1: Colon, Biopsy 2: Colon, Biopsy 3: Colon, Biopsy 4: Colon, Biopsy CLINICAL HISTORY: 1. CECAL POLYP 2. HEPATIC FLEXTURE POLYP 3. TRANSVERSE POLYP X2 4. SIGMOID POLYP FINAL DIAGNOSIS: 1. Cecum, Polyp, Biopsy: Tubular adenoma; negative for high-grade dysplasia. 2. Hepatic Flexure, Polyp, Biopsy: Tubular adenoma; negative for high-grade dysplasia. 3. Transverse Polyp, Biopsy: Portions of tubular adenoma x2; negative for high-grade dysplasia. 4. Sigmoid Polyp, Biopsy: Tubular adenoma; negative for high-grade dysplasia. ICD10: K63.5 GROSS DESCRIPTION: The specimen is received in four formalin filled containers labeled with the patient's name. 1). The specimen is sublabeled "cecal polyp" and consists of a 0.5 x 0.5 x 0.4 CM portion of tissue. The specimen is entirely submitted in cassette 1A. 2). The specimen is sublabeled "hepatic flexure" and consists of a 0.3 x 0.3 x 0.2 CM portion of tissue which is entirely submitted in cassette 2A. 3). The specimen is sublabeled "transverse polyp" and consists of 2 portions of tissue which aggregate to 0.5 x 0.3 x 0.2 CM. The specimen is entirely submitted in cassette 3A. 4). The specimen is sublabeled "sigmoid polyp" and consists of a 0.3 x 0.3 x 0.2 CM portion of tissue which is entirely submitted in cassette 4A. 11/16/2016 [facility] ICD-9 CODES: CPT CODES: 1: 78246 2: 77207 3: 71466 4: 16753 Electronically Signed Out Myesha Bustillo MD [facility], [place] [address] Technical component performed at [facility], [address], [place], [address]
== END 2016-11-15 23:59 | disposition home or self-care (01) ==
LOC: END 12:18
PROVIDERS: ATTEND Student in an Organized Health Care Education/Training Program
DX: D12.0 Benign neoplasm of cecum (principal); D12.5 Benign neoplasm of sigmoid colon; D12.3 Benign neoplasm of transverse colon; K57.20 Diverticulitis of large intestine with perforation and abscess without bleeding
CPT/HCPCS: 45380; 45385; 88305; G0500; J7030